=== PATIENT | female | born 2000 | race Caucasian/White ===

== ENCOUNTER 2023-10-01 10:38 | Emergency (ER) | payer SELFPAY ==
[2023-10-01] MEDS ORDERED: Dexamethasone 10 MG/ML VIAL ONE (11:51)
[2023-10-01 12:43] LABS: MONO NEGATIVE CONTROL ZONE White (Negative) (White); MONO POSITIVE CONTROL Pink Line (Positive) (PINK/RED); Mononucleosis NEGATIVE (NEGATIVE)
== END 2023-10-01 13:20 | disposition home or self-care (01) ==
LOC: CSHERS 10:38
DX: J03.90 Acute tonsillitis, unspecified (principal); F17.210 Nicotine dependence, cigarettes, uncomplicated; F17.290 Nicotine dependence, other tobacco product, uncomplicated
CPT/HCPCS: 36415; 86308; 87081; 87430; 99284; J1100